=== PATIENT | female | born 1985 | race Caucasian/White ===

== ENCOUNTER → 2016-12-09 | Outpatient (CLI) | payer OTHER ==
--- NOTE | 2016-12-09 09:20 | US ---
Sonography Limited to the Right Upper Quadrant of the Abdomen CLINICAL HISTORY: 31-year-old female who is 32 weeks , complaining of right upper quadrant pa in for 3 weeks. ICD 10 Diagnostic Code: Z34.93. TECHNIQUE: A curvilinear 5 MHz transducer was used to sonographically evaluate the right upper quadra nt of the abdomen. Color Doppler was used. COMPARISON STUDY: None. FINDINGS: The visualized portions of the pancreatic contour are normal. A portion of the pancreatic h ead and tail are partially obscured by bowel gas. The abdominal aorta is normal in size, and tapers n ormally, with the caveat that bowel gas obscures portions of the mid and distal aspects. The visualiz ed IVC is normal in caliber. The hepatic vein trifurcation is normal. The main portal vein is patent. The liver is normal in size, measuring 12.7 cm along the right midaxillary line. There is no intrahe patic bile duct dilatation. The common bile duct is mildly prominent for 31-year-old female, measurin g 6.0 mm in the periportal aspect. The CBD at the level of the pancreatic head is obscured. Does the patient have elevation of her bilirubin levels? If there is further clinical concern, an MRCP could b e considered. The gallbladder is moderately distended, and there is no evidence of cholelithiasis, sl udge, polyp, wall thickening, pericholecystic fluid, or sonographic Choi sign. The wall thickness i s 2.4 mm. The right kidney is normal in size, shape, and contour, with a normal renal cortical thickn ess, and no focal renal mass or hydronephrosis, and measures 11.3 x 5.8 x 4.6 cm. The right renal cor franklin measures 1.6 mm. There is no ascites or right pleural effusion. IMPRESSION: 1. Mild prominence of the periportal aspect of the common bile duct. The distal CBD is obscured at th e level of the pancreatic head by overlying bowel gas. Does the patient have an elevated bilirubin le mavis? If there is further clinical concern, an MRCP could be considered. 2. Normal appearance of the liver and gallbladder.
== END ==
LOC: BRMIMAGING 08:17
PROVIDERS: ATTEND Midwife
DX: Z34.93 Encounter for supervision of normal pregnancy, unspecified, third trimester (principal); R10.11 Right upper quadrant pain
CPT/HCPCS: 76705-PO

== ENCOUNTER 2017-02-05 05:34 | Observation (INO) | payer OTHER ==
[2017-02-05] MEDS ORDERED: fentaNYL 100 MCG/2 ML INJ IV PRN (07:58)
[2017-02-05] MEDS ORDERED: ONDANSETRON 4 MG/2 ML VIAL IVP PRN (08:06)
== END 2017-02-05 10:00 | disposition home or self-care (01) ==
LOC: FLD 05:34
PROVIDERS: ADMIT Obstetrics & Gynecology; ATTEND Obstetrics & Gynecology
DX: O47.1 False labor at or after 37 completed weeks of gestation (principal); Z3A.39 39 weeks gestation of pregnancy
CPT/HCPCS: 59025; G0378

== ENCOUNTER 2017-02-05 16:25 | Inpatient (IN) | payer OTHER ==
[2017-02-05] MEDS ORDERED: EPSOM SALT 454 GM TP PRN (17:07)
[2017-02-05] MEDS ORDERED: LR 1,000 ML IV PRN (17:07)
[2017-02-05] MEDS ORDERED: TERBUTALINE SULFATE 1 MG/ML VIAL IV PRN (17:07)
[2017-02-05] MEDS ORDERED: OXYTOCIN/RINGERS LACTATE 1,000 ML IV PRN (17:07)
[2017-02-05] MEDS ORDERED: LIDOCAINE 1% 30 ML SDV SC PRN (17:07)
[2017-02-05] MEDS ORDERED: OLIVE OIL 118 ML BTL MISC PRN (17:07)
[2017-02-05 18:13] LABS: % IMMATURE GRANULYOCYTES 0.5 % (0.0-1.1); ABSOLUTE IMMATURE GRANULOCYTES 0.08 10^3/uL (0.00-0.10); ADD DIFF? NO; ADD MORPH? NO; ADD SCAN? NO; ATYPICAL LYMPHOCYTE FLAG 0 (0-99); FRAGMENT RBC FLAG 0 (0-99); HEMATOCRIT 40.9 % (38.0-47.0); HEMOGLOBIN 14.1 g/dL (12.6-16.3); LEFT SHIFT FLG 0 (0-99); LIPEMIA HEMOLYSIS FLAG 90 (0-99); MEAN CELL HEMOGLOBIN CONCENTR. 34.5 g/dL (32.4-36.7); MEAN PLATELET VOLUME 12.8 fL (8.7-11.7); PLATELET CLUMPS FLAG 10 (0-99); PLATELET COUNT 182 10^3/uL (150-400); RED BLOOD CELL COUNT 4.87 10^6/uL (4.18-5.33); RED CELL DISTRIBUTION WIDTH 13.2 % (11.5-15.2)
[2017-02-05] MEDS ORDERED: PHENYLEPHRINE HCL 100 MCG/ML SYR ONE (18:14)
[2017-02-05] MEDS ORDERED: BUPIVACAINE 0.25% 30 ML SDV ONE (18:14)
[2017-02-05] MEDS ORDERED: fentaNYL 2MCG/ML/BUP 0.1% RTU 100 ML BAG EP ONE (18:14)
[2017-02-05] MEDS ORDERED: fentaNYL 100 MCG/2 ML INJ ONE (18:15)
[2017-02-05] MEDS ORDERED: OXYTOCIN 10 UNIT/ML VIAL ONE (18:17)
[2017-02-05] MEDS ORDERED: LIDOCAINE 1% 30 ML SDV ONE (18:17)
[2017-02-05] MEDS ORDERED: AMMONIA AROMATIC 1 EACH AMP IH ONE (18:17)
[2017-02-05] MEDS ORDERED: TERBUTALINE SULFATE 1 MG/ML VIAL ONE (18:17)
[2017-02-05] MEDS ORDERED: OLIVE OIL 118 ML BTL ONE (18:17)
[2017-02-05] MEDS ORDERED: MISOPROSTOL 200 MCG TAB ONE (18:18)
[2017-02-05] MEDS ORDERED: fentaNYL 2MCG/ML/BUP 0.1% RTU 100 ML EP SCH (19:00)
[2017-02-05] MEDS ORDERED: LR 500 ML IV SCH (19:00)
--- NOTE | 2017-02-05 19:29 | PDGENHP ---
History and Physical - Chief Complaint painful contractions - History of Present Illness Patient is a 31 y/o at 39+4 weeks EGA admitted in active labor. She reported contractions every 4-5 minutes all day, worsening over the last few hours. No lof/vb and good FM. Hx prothrombin gene mutation. History Information - Allergies/Home Medication List Allergies/Adverse Reactions: No Known Allergies Allergy (Unverified 02/05/17 07:51) I have personally reviewed and updated: family history, medical history, social history, surgical history Past Medical History: prothrombin gene heterozygote - Social History Smoking Status: Never smoked Review of Systems ROS: 10pt was reviewed & negative except for what was stated in HPI & below Physical Exam Constitutional: no apparent distress, appears nourished, not in pain ( with DIMITRIS) Respiratory: no respiratory distress Gastrointestinal: normoactive bowel sounds, soft, non-tender abdomen, other ( gravid) Genitourinary: head in urethra, other (cervix: 5-6/90/0, AROM completed with clear, blood tinged fluid noted.) Lab Data & Imaging Review 02/05/17 17:35 WBC 16.46 10^3/uL (3.80-9.50) H 02/05/17 17:35 RBC 4.87 10^6/uL (4.18-5.33) 02/05/17 17:35 Hgb 14.1 g/dL (12.6-16.3) 02/05/17 17:35 Hct 40.9 % (38.0-47.0) 02/05/17 17:35 MCV 84.0 fL (81.5-99.8) 02/05/17 17:35 MCH 29.0 pg (27.9-34.1) 02/05/17 17:35 MCHC 34.5 g/dL (32.4-36.7) 02/05/17 17:35 RDW 13.2 % (11.5-15.2) 02/05/17 17:35 Plt Count 182 10^3/uL (150-400) 02/05/17 17:35 MPV 12.8 fL (8.7-11.7) H 02/05/17 17:35 Neut % (Auto) 84.6 % (39.3-74.2) H 02/05/17 17:35 Lymph % (Auto) 10.6 % (15.0-45.0) L 02/05/17 17:35 [place] % (Auto) 4.1 % (4.5-13.0) L 02/05/17 17:35 Eos % (Auto) 0.0 % (0.6-7.6) L 02/05/17 17:35 Baso % (Auto) 0.2 % (0.3-1.7) L 02/05/17 17:35 Nucleat RBC Rel Count 0.0 % (0.0-0.2) 02/05/17 17:35 Absolute Neuts (auto) 13.93 10^3/uL (1.70-6.50) H 02/05/17 17:35 Absolute Lymphs (auto) 1.74 10^3/uL (1.00-3.00) 02/05/17 17:35 Absolute Monos (auto) 0.68 10^3/uL (0.30-0.80) 02/05/17 17:35 Absolute Eos (auto) 0.00 10^3/uL (0.03-0.40) L 02/05/17 17:35 Absolute Basos (auto) 0.03 10^3/uL (0.02-0.10) 02/05/17 17:35 Absolute Nucleated RBC 0.00 10^3/uL (0-0.01) 02/05/17 17:35 Immature Gran % 0.5 % (0.0-1.1) 02/05/17 17:35 Immature Gran # 0.08 10^3/uL (0.00-0.10) 02/05/17 17:35 Patient ABO/Rh O POSITIVE 02/05/17 17:35 Antibody Screen NEGATIVE 02/05/17 17:35 Assessment & Plan Assessment: 31 y/o at 39+4 weeks EGA in active labor Plan: 1) Labor progressing well, with augment with pitocin if needed 2) status reassuring w/ category 1 FHT 3) Pain: Well controlled with DIMITRIS just administered on admission by anesthesia 4) GBS negative 5) Prothrombin gene heterozygote, per patient report: Plan anticoagulation PP if C/S or preeclampsia develops
[2017-02-05] MEDS ORDERED: LR 500 ML IV PRN (21:35)
--- NOTE | 2017-02-05 21:35 | OBPROG ---
OBG Progress Note Assessment/Plan: Assessment: 31 y/o at 39+4 weeks EGA admitted in active labor - now with no change in cervical dilation over the last 2 hours Plan: 1) Labor: No change in cervical dilation over the last 2 hours, so IUPC placed , and will start pitocin for augmentation. 2) status reassuring over all. Decel to 90's after IUPC placed, good recovery noted after position changes initiated, back to baseline of 125-130. Over all reassuring w/ moderate variability and spontaneous accel noted. 3) Pain well controlled w/ DIMITRIS 4) GBS neg 02/05/17 21:32 Subjective: Pt comfortable w/ DIMITRIS in place. Objective: 02/05/17 17:35 Patient ABO/Rh O POSITIVE 02/05/17 17:35 - SVE Dilation (cm): 5 Effacement (%): 90 Station: +1 Current Contraction Pattern: Regular FHR (bpm): 125 FHR Pattern Variability: Moderate FHR Category: 2 Amniotic Fluid Color: Clear ICD10 Worksheet Patient Problems: Problems Problem Status Onset Labor established Acute False labor after 37 completed weeks of gestation Acute - ICD10 Problem Qualifiers (1) Labor established
[2017-02-05] MEDS ORDERED: OXYTOCIN/RINGERS LACTATE 500 ML IV SCH (22:00)
--- NOTE | 2017-02-06 03:47 | OBPROG ---
OBG Progress Note Assessment/Plan: Assessment: 31 y/o at 39+4 weeks EGA admitted in active labor - now with no change in cervical dilation over the last 2 hours Plan: 1) Labor: C/C/+2, will start pushing. 2) status reassuring over all w/ cat 1 FHT, excellent moderate variability present. 3) Pain well controlled w/ DIMITRIS 4) GBS neg 02/06/17 03:46 Subjective: Pt comfortable with DIMITRIS but feeling pressure. Objective: 02/05/17 17:35 Patient ABO/Rh O POSITIVE 02/05/17 17:35 - SVE Dilation (cm): 10 Effacement (%): 100 Station: +2 Current Contraction Pattern: Regular FHR (bpm): 120 FHR Pattern Variability: Moderate FHR Category: 1 Amniotic Fluid Color: Clear ICD10 Worksheet Patient Problems: Problems Problem Status Onset Labor established Acute False labor after 37 completed weeks of gestation Acute - ICD10 Problem Qualifiers (1) Labor established
[2017-02-06] MEDS ORDERED: CALCIUM CARBONATE 500 MG CHEWABLE TAB PO PRN ×2 (04:01→04:19)
[2017-02-06] MEDS ORDERED: ONDANSETRON 4 MG/2 ML VIAL IVP PRN (04:01)
[2017-02-06] MEDS ORDERED: FAMOTIDINE 20 MG/2 ML SDV IVP PRN (04:02)
[2017-02-06] MEDS ORDERED: FAMOTIDINE 20 MG/NACL 50 ML IV PRN (04:15)
[2017-02-06 07:07] LABS: PH VENOUS CORD BLOOD 7.33 (7.20-7.42)
[2017-02-06] MEDS ORDERED: HYDROCORTISONE 0.5% CREAM TP PRN (07:28)
[2017-02-06] MEDS ORDERED: SIMETHICONE 80 MG TAB CHEW PO PRN (07:28)
[2017-02-06] MEDS ORDERED: HYDROCODONE/APAP 5/325 TAB PO PRN (07:28)
[2017-02-06] MEDS ORDERED: ACETAMINOPHEN 325 MG TAB PO PRN (07:28)
[2017-02-06] MEDS ORDERED: OXYTOCIN/RINGERS LACTATE 1,000 ML IV SCH (07:30)
--- NOTE | 2017-02-06 07:31 | OBPROC ---
- Labor and Delivery Onset of Contractions Date: 02/05/17 Onset of Contractions Time: 16:00 Onset of Contractions Type: Augmented Rupture of Membranes Date: 02/06/17 Rupture of Membranes Time: 18:58 Rupture of Membranes Type: Artificial Amniotic Fluid Color: Clear, Blood Tinged Dilation Complete Time: 03:25 Delivery Type: Spontaneous Placenta Delivery Date: 02/06/17 Placenta Delivery Time: 06:50 Episiotomy/Laceration: 2nd Degree Repair: 2-0, Vicryl EBL: 300 cc Complications: Nuchal Cord (tight, cut on perineum) Cord Gases: Cord Gases Cord Blood PCO2 TNP 02/06/17 06:38 Cord Base Excess TNP 02/06/17 06:38 Cord ABG pH TNP 02/06/17 06:38 Cord VBG pH 7.33 (7.20-7.42) 02/06/17 06:38 - Medications Labor Augmentation/Induction Meds Used: Pitocin Labor Augmentation/Induction Indication: Other (Specify) (augmentation for protracted labor) Anesthesia: Epidural - [place] Info Infant A Delivery Date: 02/06/17 Delivery Time: 06:38 Sex of Infant: Male Score (1 Min): 1 Score (5 Min): 7 (Baby delivered in SALAZAR position with a tight nuchal cord that was cut on the perineum. Baby was bulb suctioned, then placed on the maternal abdomen; baby was blue and floppy, so TRAVERSE ROD ASSEMBLER called and baby taken to the warmer. Cord gases and cord blood obtained. Placenta delivered and intact. Small 2nd degree laceration noted in the midline. Cervix intact. Laceration repaired with a crown stitch and hemostatic. Resuscitation of baby went well, and mother and baby in stable and good condition. Baby now on mother 's chest doing well.)
[2017-02-06] MEDS: IBUPROFEN 600 MG TAB PO PRN ×3 (08:44→20:55)
[2017-02-06] MEDS ORDERED: METHYLERGONOVINE MAL 0.2 MG/ML INJ ONE (09:24)
[2017-02-06] MEDS: DOCUSATE SODIUM 100 MG CAP PO PRN (20:55)
[2017-02-06 21:12] VITALS: RESP 18
[2017-02-07] MEDS: IBUPROFEN 600 MG TAB PO PRN ×4 (02:50→21:39)
--- NOTE | 2017-02-07 07:14 | SOAPPROG ---
SOAP Progress Note Assessment/Plan: Assessment: 31 y.o. female s/p PPD#1. Recovering well with good pain control. Plan: Routine orders. fashion consultant. Anticipate discharge to home tomorrow. 02/07/17 07:11 Subjective: Reports feeling well with good pain control and minimal vaginal bleeding. with nipple sore noted- [place] consultant to assist. Eating and drinking well without nausea or vomiting. Has been out of bed and ambulating without vertigo. Appropriate mood with good support system. Objective: Vital Signs Temp Pulse Resp BP Pulse Ox 37.3 C 80 18 100/58 L 97 02/06/17 20:00 02/06/17 20:00 02/06/17 20:00 02/06/17 20:00 02/06/17 20:00 Laboratory Results 02/07/17 06:51 02/06/17 02/07/17 02/08/17 05:59 05:59 05:59 Output Total 350 Balance -350 - Time Spent With Patient Time Spent With Patient: 20 minutes - Pending Discharge Pending Discharge Within 24 Hours: Yes Pending Discharge Date: 02/08/17 Pending Discharge Time: 11:00 Physical Exam - Physical Exam General Appearance: WD/WN, alert, no apparent distress EENT: normal ENT inspection Neck: non-tender, full range of motion Respiratory: lungs clear, normal breath sounds Cardiac/Chest: normal peripheral pulses, regular rate, rhythm Abdomen: non-tender, soft Pelvic Exam: normal external exam Rectal: deferred Back: Normal inspection Skin: normal color, warm/dry Lymphatic: no adenopathy Extremities: normal range of motion, non-tender Neuro/Psych: alert, normal mood/affect, oriented x 3 ICD10 Worksheet Patient Problems: Problems Problem Status Onset Labor established Acute False labor after 37 completed weeks of gestation Acute
[2017-02-07 09:10] VITALS: O2SAT 96
[2017-02-07] MEDS: DOCUSATE SODIUM 100 MG CAP PO PRN ×2 (09:40→21:40)
[2017-02-07] MEDS: IRON POLYSAC/IRON HEME 28 MG TAB PO SCH (09:40)
[2017-02-08] MEDS: IBUPROFEN 600 MG TAB PO PRN ×2 (05:35→11:58)
--- NOTE | 2017-02-08 08:34 | OBGCSDC ---
General Delivery Information - General Info : 1 Para: 1 Delivery Date: 02/06/17 Delivery Time: 06:38 Delivery Physician/CNM: Shannan Lopez Admission Date: 02/05/17 Labs: Patient ABO/Rh O POSITIVE 02/05/17 17:35 Hct 35.9 % (38.0-47.0) L 02/07/17 06:51 - [place] Info A Sex of : Male Score (1 Min): 1 Score (5 Min): 7 (Baby delivered in SALAZAR position with a tight nuchal cord that was cut on the perineum. Baby was bulb suctioned, then placed on the maternal abdomen; baby was blue and floppy, so DISTRICT ENGINEER called and baby taken to the warmer. Cord gases and cord blood obtained. Placenta delivered and intact. Small 2nd degree laceration noted in the midline. Cervix intact. Laceration repaired with a crown stitch and hemostatic. Resuscitation of baby went well, and mother and baby in stable and good condition. Baby now on mother 's chest doing well.) Vaginal - Diagnosis IUP (Weeks): 39 4/7 Labor: Augmented Rupture of Membranes Type: Artificial Amniotic Fluid Color: Clear Laceration: 2nd Degree Repair: 2-0, Vicryl Complications: Nuchal Cord (tight, cut on perineum) - Operations/Procedures Delivery Type: Spontaneous Procedures: Amniotomy Anesthesia: Epidural - Delivery EBL: 300 cc Anesthesia: Epidural Discharge Information - Discharge Information Discharge Medications: Ibuprofen, Vitamins, Vicodin Condition: Good Instruction/Follow Up: Six Weeks Discharge Physician/CNM: Zahida Gaxiola Discharge Date: 02/08/17 Dictated: No
[2017-02-08] MEDS: IRON POLYSAC/IRON HEME 28 MG TAB PO SCH (08:59)
[2017-02-08] MEDS: DOCUSATE SODIUM 100 MG CAP PO PRN (08:59)
[2017-02-08 10:35] VITALS: BP 103/67; PULSE 71; TEMP 97.1
== END 2017-02-08 15:15 | disposition home or self-care (01) | DRG 775 ==
LOC: FLD 16:25 → OBSVTOIN 17:08 → FOB 02-06 09:45
PROVIDERS: ADMIT Obstetrics & Gynecology; ATTEND Obstetrics & Gynecology
PROC: 10E0XZZ Delivery of Products of Conception, External Approach (ICD-10-PCS; principal; 2017-02-06)
PROC: 0KQM0ZZ Repair Perineum Muscle, Open Approach (ICD-10-PCS; principal; 2017-02-06)
PROC: 4A1J7BZ Monitoring of Products of Conception, Nervous Pressure, Via Natural or Artificial Opening (ICD-10-PCS; principal; 2017-02-06)
PROC: 10907ZC Drainage of Amniotic Fluid, Therapeutic from Products of Conception, Via Natural or Artificial Opening (ICD-10-PCS; principal; 2017-02-06)
DX: O70.1 Second degree perineal laceration during delivery (principal); O69.1XX0 Labor and delivery complicated by cord around neck, with compression, not applicable or unspecified; Z3A.39 39 weeks gestation of pregnancy; Z37.0 Single live birth
CPT/HCPCS: J2210; J2370; J2590; J3010; J3105

== ENCOUNTER → 2017-02-13 | Outpatient (CLI) | payer OTHER | LOC: FLACT 13:22 | PROVIDERS: ATTEND Obstetrics & Gynecology | DX: O92.13 Cracked nipple associated with lactation (principal); O92.79 Other disorders of lactation | CPT/HCPCS: G0463 ==

== ENCOUNTER → 2017-02-20 | Outpatient (CLI) | payer OTHER | LOC: FLACT 09:24 → EDSTATUS 09:25 | PROVIDERS: ATTEND Obstetrics & Gynecology | DX: O92.29 Other disorders of breast associated with pregnancy and the puerperium (principal) | CPT/HCPCS: G0463 ==

== ENCOUNTER → 2017-03-09 | Outpatient (CLI) | payer OTHER | LOC: FLACT 12:51 | PROVIDERS: ATTEND Obstetrics & Gynecology | DX: O92.13 Cracked nipple associated with lactation (principal) | CPT/HCPCS: G0463 ==

== ENCOUNTER → 2019-02-07 | Outpatient (CLI) | payer OTHER | LOC: BMCIMAGING 16:41 | PROVIDERS: ATTEND Family Medicine | DX: R05 Cough (principal) ==

== ENCOUNTER 2019-04-26 19:34 | Emergency (ER) | payer OTHER | END 2019-04-26 21:13 | disposition home or self-care (01) ==